=== PATIENT | male | born 1995 | race Two or more races ===

== ENCOUNTER 2020-11-15 15:54 | Outpatient (REF) | payer OTHER, SELFPAY ==
[2020-11-15 16:27] LABS: COVID-19 Test Negative (Negative)
== END 2020-11-15 15:55 | disposition home or self-care (01) ==
LOC: HO.EMPCOV 15:54
PROVIDERS: Visit Provider Internal Medicine
DX: Z20.822 Contact with and (suspected) exposure to COVID-19 (principal)
CPT/HCPCS: 36415; 87635; C9803